=== PATIENT | female | born 1950 | race Caucasian/White ===

== ENCOUNTER 2022-05-25 08:47 | Day surgery (SDC) | payer MEDICARE, SELFPAY ==
--- NOTE | 2022-05-25 06:47 | HPE_ITS ---
Assessment and Plan Assessment and plan (1) Nuclear sclerotic cataract of right eye: Status: Acute Assessment and plan: Assessment: Visually significant cataract of the right eye. Plan: Cataract extraction with intraocular lens implantation of the right eye. (2) Cortical cataract of right eye: Status: Acute Assessment and plan: Assessment: Visually significant cataract of the right eye. Plan: Cataract extraction with intraocular lens implantation of the right eye (3) Posterior subcapsular age-related cataract, right eye: Status: Acute Assessment and plan: Assessment: Visually significant cataract of the right eye. Plan: Cataract extraction with intraocular lens implantation of the right eye History of Present Illness History of Present Illness Chief Complaint: Progressive decreased vision, right eye Narrative: Patient is a 71-year-old lady who presented with complaints of progressive dec reased vision in her right eye. She noted significant difficulty with glare and also has trouble with floaters. Past ocular history is significant for retinal laser in the left eye for a retinal tear, and pars plana vitrectomy and membrane peeling in the left eye at [facility]. She now notes significant decreased visual acuity in her right eye. Review of Systems All systems reviewed & are unremarkable except as noted in HPI and below PFSH All Active Problems (Updated 05/25/22 @ 09:23 by Indigo Fields) Nuclear sclerotic cataract of right eye (Acute) Cortical cataract of right eye (Acute) Posterior subcapsular age-related cataract, right eye (Acute) Medical History (Updated 05/25/22 @ 09:23 by Indigo Fields) A-fib Chronic back pain GERD (gastroesophageal reflux disease) History of uterine fibroid removal Hypertensive disorder Incontinence Joint pain Morbid obesity PND (post-nasal drip) Shortness of breath at rest pt. states its with exertion Surgical History History of colonoscopy Hx of cataract surgery Hx of eye surgery vitreal peel and retinal detachment Hx of tonsillectomy Social History Smoking/Tobacco Use Status: Never Smoking risk assessment performed?: Yes Alcohol Intake: current Alcohol Intake frequency: a few times a month Drug use: Never Substance use type: does not use Do you feel safe at home: Yes Do you feel safe in your relationship?: Yes Meds Allergies and Home Medications Allergies Allergy/AdvReac Type Severity Reaction Status Date / Time grass pollen Allergy Intermediate Other (See Unverified 05/25/22 09:23 Comment) house dust Allergy Intermediate Other (See Unverified 05/25/22 09:23 Comment) Sulfa (Sulfonamide Allergy Intermediate Other (See Unverified 05/25/22 09:23 Antibiotics) Comment) Home Medications Medication Instructions Recorded Confirmed Type acetaminophen 325 mg tablet 650 mg PO DAILY PRN 03/27/22 05/25/22 History apixaban 5 mg tablet (Eliquis) 5 mg PO BID 03/27/22 05/25/22 History diltiazem HCl 180 mg capsule,24 180 mg PO HS 03/27/22 05/25/22 History hr,extended release fluticasone propionate 50 1 spray intranasal QAM PRN 03/27/22 05/25/22 History mcg/actuation nasal spray,suspension hydrochlorothiazide 25 mg tablet 25 mg PO DAILY 03/27/22 05/25/22 History ketoconazole 2 % topical cream 1 applic topical BID PRN 03/27/22 05/25/22 History metoprolol succinate 100 mg 100 mg PO HS 03/27/22 05/25/22 History tablet,extended release 24 hr Exam Eyes Other: Corrected visual acuity measures 20/50 right eye, 20/30 left eye. Extraocular motility is exam is significant for a vertical misalignment. Slit-lamp examination is significant for mild cortical and posterior subcapsular cataract of the right eye, with moderate nuclear cataract. Pupils dilate to 7 mm. There is a well-positioned PCIOL OS in the left eye with open posterior capsule. Disc cupping is 0.3 OU. Resp Auscultation: clear to auscultation bilaterally Cardio Rate: regular rate Rhythm: regular rhythm
--- NOTE | 2022-05-25 09:26 | W.ANESPRE ---
General Info Date of Service Date Performed: 05/25/22 Height: 4 ft 10 in Weight: 91.5 kg Body Mass Index (BMI): 42.1 Surgical Procedure: Operation Date: 05/25/22 11:40 Proposed Procedure Side Surgeon p Cataract Extraction with IOL Implant Right Lewis Workman MD Meds Allergies and Home Medications Allergies Allergy/AdvReac Type Severity Reaction Status Date / Time grass pollen Allergy Intermediate Other (See Unverified 05/25/22 09:23 Comment) house dust Allergy Intermediate Other (See Unverified 05/25/22 09:23 Comment) Sulfa (Sulfonamide Allergy Intermediate Other (See Unverified 05/25/22 09:23 Antibiotics) Comment) Home Medication Medication Instructions Recorded acetaminophen 325 mg tablet 650 mg PO DAILY PRN 03/27/22 apixaban 5 mg tablet (Eliquis) 5 mg PO BID 03/27/22 diltiazem HCl 180 mg capsule,24 180 mg PO HS 03/27/22 hr,extended release fluticasone propionate 50 1 spray intranasal QAM PRN 03/27/22 mcg/actuation nasal spray,suspension hydrochlorothiazide 25 mg tablet 25 mg PO DAILY 03/27/22 ketoconazole 2 % topical cream 1 applic topical BID PRN 03/27/22 metoprolol succinate 100 mg 100 mg PO HS 03/27/22 tablet,extended release 24 hr Current Visit Medications: Current Medications Generic Name Dose Route Start Last Admin Trade Name Freq PRN Reason Stop Dose Admin Acetaminophen 1,000 mg 05/25/22 06:00 Acetaminophen 500 Mg Tab PO Q4H PRN PRN Miscellaneous Medication 0 ml 05/25/22 06:00 Prednisolone 1%, Moxifloxacin 0.5%, Nepafenac 0.1% 5ml Btl OD DIRECTED [facility] Miscellaneous Medication 0 ml 05/25/22 06:00 Tropicam./Phenyleph. (1/2.5%) 5 Ml Btl OD DIRECTED ALTHEA Tetracaine HCl 0 ml 05/25/22 06:00 Tetracaine 0.5% 4 Ml Btl OD DIRECTED [facility] PFSH Active Problems Active Problems: Problem Status Onset Code Nuclear sclerotic cataract of right eye H25.11 Cortical cataract of right eye H26.9 Posterior subcapsular age-related cataract, right eye H25.041 Medical History Medical History (Updated 05/25/22 @ 09:23 by Indigo Fields) A-fib Chronic back pain GERD (gastroesophageal reflux disease) History of uterine fibroid removal Hypertensive disorder Incontinence Joint pain Morbid obesity PND (post-nasal drip) Shortness of breath at rest pt. states its with exertion Medical History Comments:: Per pt. states she have chronic nasal drainage is her baseline Surgical History Surgical History History of colonoscopy Hx of cataract surgery Hx of eye surgery vitreal peel and retinal detachment Hx of tonsillectomy Tobacco Smoking/Tobacco Use Status: Never Alcohol Alcohol Intake: current Alcohol intake frequency: a few times a month Substance Use Substance use: Never Substance use type: does not use Vital Signs and Lab Results Lab Results Blood Type / Crossmatch: No Data to Display Complete Blood Count: No Data to Display Complete Metabolic Panel: No Data to Display Liver Function Panel: No Data to Display Coagulation Panel: No Data to Display Cardiac Panel: No Data to Display Arterial Blood Gas: No Data to Display Venous Blood Gas: No Data to Display Pancreas Panel: No Data to Display Thyroid Panel: No Data to Display Infectious Disease: No Data to Display Blood Cultures: No Data to Display Toxicology Panel: No Data to Display Anesthesia Assessment and Plan Anesthesia History Personal History: No History of Anesthesia Complications Family History: No Family History of Anesthesia Complications Exercise Tolerance Exercise Tolerance: Metabolic Equivalents>4 Pertinent Negatives Pertinent Negatives: No Symptoms of GERD, No Major Pulmonary Symptoms or Complaints and No History of CVA/TIA Cardiac & Pulmonary Exam Cardiac Exam: Normal S1/S2 Heart Sounds Pulmonary Exam: Clear Bilateral Breath Sounds Implantable Cardiac Device Does patient have a Pacemaker or an ICD?: No Airway Exam Known Difficult Airway: No Mallampati Class: 2 Mouth Opening: Normal (> 3cm) Thyromental Distance: Greater than 3 cm Neck Range of Motion: Full ROM Neck Circumference: Normal Teeth Condition: Normal Dentition ASA Classification ASA Score: ASA 3 Emergency Case?: No NPO Status NPO Status: NPO Clears >2 hours, Solids >8 hours Anesthesia Plan Resuscitation Status: Full Code Anesthesia Technique: MAC Anesthesia Airway Planned: Natural Airway Monitors Used: Standard Monitors
[2022-05-25 09:27] VITALS: BP 145/92; PULSE 63; RESP 16; TEMP 36.6; O2SAT 97
[2022-05-25] MEDS: Tropicam./Phenyleph. (1/2.5%) 5 ML BTL OD ×3 (09:32→09:44)
[2022-05-25 09:37] VITALS: BMI 42.1
[2022-05-25] MEDS: Duovisc Viscoelastic System EACH 1 EACH (10:17)
[2022-05-25] MEDS: Tetracaine 0.5% 4 ML BTL OD (10:17)
[2022-05-25] MEDS: Balanced Salt Soln.-PLUS 500 ML BAG (10:17)
[2022-05-25] MEDS: Lidocaine 2% Jelly 6 ML SYR (10:18)
[2022-05-25] MEDS: Lidocaine 1% Pres-Free 5 ML VIAL (10:19)
[2022-05-25] MEDS: Povidone-Iodine Ophth 30 ML BTL (10:19)
[2022-05-25 10:40] VITALS: BP 152/76; PULSE 73; RESP 16; TEMP 36; O2SAT 99
--- NOTE | 2022-05-25 10:43 | PDOC.DSDIS_ITS ---
Date of service: 05/25/22 Time of Service: 10:44 Discharge Plan Disposition Patient Disposition: HOME Condition: Good Discharge Details Attending Provider: Lewis Workman Primary Care Provider: Kamar Ochoa [place] Meds and New Rx's Prescriptions: No Action acetaminophen 325 mg Tablet 650 mg PO DAILY PRN diltiazem HCl 180 mg Capsule,Extended Release 24 Hr 180 mg PO HS hydrochlorothiazide 25 mg Tablet 25 mg PO DAILY ketoconazole 2 % Cream 1 applic TOPICAL BID PRN fluticasone propionate [Flonase] 50 mcg/actuation [place],Suspension 1 spray INTRANASAL QAM PRN Eliquis 5 mg Tablet 5 mg PO BID metoprolol succinate 100 mg Tablet Extended Release 24 Hr 100 mg PO HS Discharge Instructions Stand Alone Forms: Post-op Topical Cataract, Tete Rachel (DSU) Discharge Orders Discharge Orders: Discharge Order (Routine); Ordered 05/25/22 Ordered By: Lewis Workman DS: Diagnosis Discharge Diagnosis (1) Nuclear sclerotic cataract of right eye: Status: Resolved (2) Cortical cataract of right eye: Status: Resolved (3) Posterior subcapsular age-related cataract, right eye: Status: Resolved
--- NOTE | 2022-05-25 10:45 | W.PM.OP ---
Date of service: 05/25/22 Time of Service: 10:45 Operative Note Operative Note DATE OF PROCEDURE: 05/25/22 PRE-OP DIAGNOSIS: Nuclear/cortical/posterior subcapsular cataract, right eye POST-OP DIAGNOSIS: same PROCEDURE: Cataract extraction using phacoemulsification with intraocular lens implant, right eye SURGEON: Lewis Workman ANESTHESIA TYPE: Local By Surgeon and MAC Refer to Anesthesia Record ESTIMATED BLOOD LOSS: 0 PATHOLOGY: none sent COMPLICATIONS: None Patient was transported to: same day Patient's condition: stable Implants: Vitaliy & Vitaliy/LETITIA Tecnis [id number] Indications: Progressive visual loss due to cataract, right eye Procedure Description: CATARACT SURGERY OPERATIVE REPORT PREOPERATIVE DIAGNOSIS: 1. Nuclear/cortical/posterior subcapsular cataract, right eye POSTOPERATIVE DIAGNOSIS: Same OPERATION: 1. Cataract extraction using phacoemulsification with posterior chamber intraocular lens implant, right eye. IOL: IOL Battery Assembler/Model: Vitaliy & Vitaliy / LETITIA Tecnis [id number] IOL Power: + 19.5 diopters IOL Serial Number: [id number] Optic Diameter: 6.0mm Haptic/Overall Diameter: 13.0mm PHACO INFO: Afshin Julong Educational Technologyurion Vision System with OZil and Active Fluidics Cumulative Dispersed Energy (CDE): 7.66 seconds SURGEON: Lewis Workman MD, MARINA ANESTHESIA: Monitored Anesthesia Care (MAC), with local sub-tenon's anesthetic infiltration COMPLICATIONS: None SPECIMENS: None INDICATIONS FOR PROCEDURE: The patient is a 71-year-old lady with history of having undergone previous cataract surgery in the left eye, and plana vitrectomy and membrane peeling in the left eye as well. She has now developed asymptomatic nuclear/cortical/posterior subcapsular cataract in the right eye and desires cataract surgery there in order to improve and maximize her vision. PROCEDURE: The correct surgical eye was identified and marked as the right eye and the pupil was dilated in the preoperative area using mydriatics and cycloplegics. The dilated pupil size was 7.0 mm. The patient elected to proceed without oral sedation. The patient was brought to the operating room where cardiopulmonary monitoring was instituted and surgical time-out was performed, confirming the correct operative eye and IOL power. Topical anesthesia was administered and ophthalmic povidone-iodine 5% was instilled into the conjunctival fornices. Lidocaine gel was applied to the cornea and the flower-ocular area was prepped with Betadine 10% solution and draped in the usual sterile fashion for intraocular surgery, including an aperture drape. A Tegaderm transparent film dressing was cut in half and used to cover the lashes and lid margins. Care was taken to sequester the lashes and lid margins under the Tegaderm dressing. A lid speculum was placed between the lids of the operative eye and the Afshin LuxOR Revalia operating microscope was maneuvered into position. Nima scissors were then used to make a conjunctival buttonhole approximately 6mm posterior to the limbus in the inferonasal quadrant. Blunt dissection was carried out to expose bare sclera, and a blunt-tipped sub-tenon?s anesthesia cannula was introduced and passed posteriorly along the globe where non-preserved plain lidocaine was injected into posterior sub-Tenon?s space. A sideport knife was used to make a paracentesis port inferotemporally. The anterior chamber was filled with viscoelastic. A keratome knife was used to construct a 2-plane near-clear corneal tunnel extending 2.0mm into clear cornea superiortemporally. A flap was raised on the anterior capsule and capsulorhexis forceps were used to complete a continuous curvilinear capsulorhexis of 5.0 mm. The anterior capsule was noted to be quite thin. The anterior chamber was relatively shallow, considering the axial length of greater than 24 mm. Additional Viscoat had to be injected to decrease the convexity of the anterior lens capsule. Balanced salt solution was then used to perform cortical cleaving hydrodissection and nuclear hydrodelineation until the lens could be freely rotated within the capsular bag. The lens nucleus was then disassembled and removed within the capsular bag and iris plane using phacoemulsification. Residual cortical material was removed using the I/A handpiece. The posterior capsule was carefully polished to remove as much residual lens epithelial cells as safely possible. The capsular bag was then inflated and the anterior chamber deepened with viscoelastic. The lens implant described above was inserted into the capsular bag using the LETITIA Bushnell Injector. A Kuglen hook was used to dial the IOL into position. Residual viscoelastic was then removed first from posterior to the IOL, then from the anterior chamber using the I/A handpiece. The lens implant was noted to center nicely within the capsular bag. The incisions were stromally hydrated, and the anterior chamber was reformed using BSS. The iris was noted to be quite floppy, and tended to prolapse through the main sacral incision. Miostat was then injected into the anterior chamber and the pupil was noted to come down round, and relieved the floppy iris issue. Then 0.5cc of moxifloxacin 1.0mg/ml were injected into the capsular bag and anterior chamber. The incisions were checked with a Weck spear and found to be secure. Several drops of ophthalmic povidone-iodine 5% were then applied to the eye followed by two drops of Imprimis combination prednisolone/moxifloxacin/nepafenac solution. The drapes were removed and a clear plastic protective eye shield was placed over the eye. The patient was then returned to Same Day Surgery in stable condition.
--- NOTE | 2022-05-25 11:04 | W.ANESPOSTOP ---
Postoperative Evaluation Date, Time and Location Date Performed: 05/25/22 Time Performed: 11:04 Patient Location: Day Surgery Unit Vital Signs Most Recent Imported Vital Signs: Most Recent Vital Signs Temp Pulse Resp BP Pulse Ox 36 C L 73 16 152/76 H 99 05/25/22 10:40 05/25/22 10:40 05/25/22 10:40 05/25/22 10:40 05/25/22 10:40 Pain Score Most Recent Pain Score: Most Recent Pain Score Pain Level 0 05/25/22 10:40 Assessment Mental Status: Awake (Alert & Oriented to Patient Baseline) Airway and Respiratory Function: Patent airway with normal (patient baseline) respiratory exam Cardiovascular Function: Hemodynamically Stable Hydration Status: Adequately Hydrated Nausea & Vomiting: No Nausea or Vomiting Pain: Pt. Denies Any Pain Peripheral Nerve Block: Other (Local by Dr. Workman)
== END 2022-05-25 11:06 | disposition home or self-care (01) ==
LOC: SUR 08:47
PROVIDERS: PCP Neuromusculoskeletal Medicine & OMM; Visit Provider Ophthalmology
PROC: (CPT 66984; principal; 2022-05-25 11:30)
DX: H25.041 Posterior subcapsular polar age-related cataract, right eye (principal)
CPT/HCPCS: 66984; V2632

== ENCOUNTER 2022-12-18 08:37 | Outpatient (CLI) | payer MEDICARE, SELFPAY ==
--- NOTE | 2022-12-18 08:30 | RT.EKG_ITS ---
APPROVED REPORT Exam: Resting ECG Reason for Exam: afib Patient Location: O HR:65 bpm ECG Measurements Heart Rate 65 AXIS OR [id number] P [id number] QRSd 100 QRS 19 QT 421 T 32 QTc 438 Conclusion Atrial fibrillation...? atrial activity Low voltage, precordial leads...precordial leads <1.0mV
== END 2022-12-18 08:38 | disposition home or self-care (01) ==
LOC: DI.CARD 08:38
PROVIDERS: PCP Neuromusculoskeletal Medicine & OMM; Visit Provider Internal Medicine Cardiovascular Disease
DX: I48.91 Unspecified atrial fibrillation (principal)
CPT/HCPCS: 93010

== ENCOUNTER → 2022-12-18 10:58 | Outpatient (BNVA) | payer MEDICARE, SELFPAY | PROVIDERS: PCP Neuromusculoskeletal Medicine & OMM; Referring Provider Neuromusculoskeletal Medicine & OMM; Visit Provider Internal Medicine Cardiovascular Disease | DX: I48.21 Permanent atrial fibrillation (principal); Z79.01 Long term (current) use of anticoagulants | CPT/HCPCS: 93005; 99202; 99203 ==

== ENCOUNTER 2022-12-28 01:55 | Outpatient (CLI) | payer MEDICARE, SELFPAY ==
--- NOTE | 2022-12-28 07:15 | DI.NM_ITS ---
APPROVED REPORT Exam: Pharmacologic Patient Location: Out-Patient Room/Bed: Stress Nurse: Kate Pascal RN Ordering Provider:JESUS HEWITTD, Contact Number: BMI: 42.84 Baseline Rhythm: Atrial Fibrillation Indications: Exertional dyspnea, Afib Medical History Medical History: Afibm GERD, HTN, PND, SOB/SINGER, back pain, Obesity Cardiac Medications: Metoprolol succinate, HCTZ, Flonase, Diltiazem, Apixiban Allergies: Grass pollen, house dust, sulfa Cardiac Risk Factors: Family Hx, HTN, Obesity Previous Cardiac Procedures: None Pretest Chest Pain Characteristics: None Exercise History: Sedentary Physical Disabilities: None Lung Sounds: Clear to auscultation Heart Sounds: Irregular Stress Test Details Test: Exercise stress converted to pharmacologic stress due to failure to obtain a diagnostic stress test. Nuclear Acquisition: Stress Tc-99m/Stress Tc-99m 1 day Rest Isotope: Tc-99m Sestamibi. Dose: 10 Date: 12/28/2022 Injection Time: 0845 Stress Isotope: Tc-99m Sestamibi. Dose: 31 Date: 12/28/2022 Injection Time: 1014 HR Resting HR Supine: 60 bpm Max Heart Rate (APMHR): 148.130702 bpm Resting HR Standin bpm Target HR (85% APMHR): 125.317088 bpm Max HR Achieved: 111 bpm % of APMHR: 75.00 Recovery HR: 77 bpm HR response to stress: Normal HR response to stress BP Resting BP Supine: 142/82 mmHg Resting BP Standin/82 mmHg Max BP: 162/78 mmHg Recovery BP: 162/78 mmHg BP response to stress: Normal blood pressure response to stress. ECG Resting ECG: Atrial Fibrillation Ectopy: None Stress ECG: Atrial Fibrillation ST Change: No significant ST segment changes noted Arrhythmia: None Recovery ECG: Atrial Fibrillation Recovery ST Change: No significant ST segment changes noted Recovery Arrhythmia: None Clinical Rate Pressure Product: [id number] Stress ECG Conclusion 1. The resting electrocardiogram showed atrial fibrillation 2. Patient underwent testing using pharmacologic stress with regadenoson 3. Peak heart rate achieved was 75% of predicted for age 4. The electrocardiographic portion of the test was nondiagnostic 5. See MPI report Stress Test Summary STAGE Time (mins) Speed (mph) Grade (%) HR BP SpO2 SYMPTOMS METS Supine 60 142/82 Standing 65 128/82 98 1 min post Lexiscan injection 98 142/82 96 SOB 3 min post Lexiscan injection 97 152/88 96 SOB/SELBY 6 min post Lexiscan injection 77 162/78 98 SOB resolved, lingering SELBY Patient able to tolerate about 1 minute of exercise before transition to walking kiki from fatigue an d inability to reach THR. Pharmacologic testing performed with low level exercise of treadmill at 0.7 MPH and 0% grade. Patient did take metoprolol succinate last night. MPI Conclusion Myocardial perfusion is normal. There is no ischemia or evidence of prior infarction EF 77%, wall motion is normal Radiologist Interpretation Radiologist agrees with Information Engineer's Interpretation. Radiologist Interpretation by: Gume Menjivar MD Interpretation Date/Time: 12/29/2022 15:35:12
[2022-12-28] MEDS: Regadenoson 0.4 MG/5 ML SYR IVP (10:22)
== END 2022-12-28 02:15 ==
LOC: DI 01:55
PROVIDERS: PCP Neuromusculoskeletal Medicine & OMM; Visit Provider Internal Medicine Cardiovascular Disease
DX: I48.91 Unspecified atrial fibrillation (principal)
CPT/HCPCS: 78452; 93016; 93018; 93017; J2785

== ENCOUNTER → 2023-05-11 02:31 | Outpatient (CLI) | payer MEDICARE, SELFPAY ==
--- NOTE | 2023-05-11 07:30 | DI.US_ITS ---
APPROVED REPORT EXAM: Comprehensive 2D, Doppler, and color-flow Echocardiogram Patient Location: Out-Patient Supervisor Accounting Clerks: Mike Rodriguez RDCS (AE) Indications: atrial fibrillation and dyspnea Other Information Study Quality: Adequate. Technically limited study due to body habitus. Conclusion Normal left ventricular wall thickness and chamber size. Ejection fraction is 60 to 65%. Wall motio n is normal Normal right ventricular size and systolic function Both atria are moderately enlarged Aortic valve is trileaflet without stenosis or regurgitation Normal mitral valve with mild regurgitation Normal tricuspid valve with mild to moderate regurgitation. Estimated right ventricular systolic pre ssure is 27 mmHg Wall motion Left Ventricle The left ventricle is normal size. The left ventricular systolic function is normal. The left ventric ular ejection fraction is within the normal range. There is normal left ventricular wall thickness. T here is normal LV segmental wall motion. There is no ventricular septal defect visualized. LVEF is 60 -65%. Right Ventricle The right ventricle is normal size. The right ventricular systolic function is normal. The RVSP is 27 .1 mmHg. Atria Left atrium is moderately dilated. Right atrium is moderately dilated. The interatrial septum is inta ct with no evidence for an atrial septal defect. Aortic Valve The aortic valve is normal in structure. Aortic valve is trileaflet. There is no aortic valvular sten osis. Mitral Valve The mitral valve is normal in structure. No evidence of mitral valve stenosis. Mild mitral regurgitat ion. Tricuspid Valve The tricuspid valve is normal in structure. There is no tricuspid valve stenosis. Mild to moderate tr icuspid regurgitation. Pulmonic Valve The pulmonary valve is normal in structure. There is no pulmonic valvular stenosis. There is no pulmo dennys valvular regurgitation. Great Vessels The aortic root is normal in size. The ascending aorta is mildly dilated. Aortic arch is normal in ca liber. IVC is normal in size and collapses >50% with inspiration. Pericardium There is no pericardial effusion. 2D Dimensions IVSD d PLAX 1.04 cm F: 0.6-1.0 Ao Root d 1.99 cm F: 2.7 - 3.3 LVPW d PLAX 0.99 cm F: 0.6 - 1.0 Ao Asc Diam d 3.34 cm F: 2.3 - 3.1 LVID d PLAX 4.03 cm F: 3.8 - 5.2 LVDs 2.63 cm F: 2.2 - 3.5 LV EF Teichholz 64.4 % FS 34.65 % LV EDV (Teich) 71.1 mL LV ESV (Teich) 25.4 mL Stroke Vol Index (Teich) 24.88 M-Mode TAPSE 2.31 cm (M/F) >1.7 Auto EF LV EDV A4C 57.6 mL LV EDV A2C 73.4 mL LV EDV BP 64.7 mL LV ESV A4C 22.5 mL LV ESV A2C 29.6 mL LV ESV BP 25.2 mL LVEF(%) A4C 60.9 % LVEF(%) A2C 59.7 % LVEF(%) BP 61.0 % LV SV A4C 35.1 ml LV SV A2C 43.8 ml LV SV BP 39.4 ml LV CO A4C 1.8 L/min LV CO A2C 2.7 L/min LV CO BP 2.3 L/min HR A4C 51.65 BPM HR A2C 62.72 BPM LV EDV Index (BP) LA Volume LA Length A4C 6.3 cm LA Length A2C LA Area A4C s 21.31 cm2 LA Area A2C s LA Vol A4C A-L 61.13 mL LA Vol A2C A-L LA Vol Biplane A-L LA Vol A4C MOD 59.0 mL LA Vol A2C MOD LA Vol BP MOD RA Volume RA Area A4C 21.1 cm2 RA ESV A4C (A-L) 61.9mL RA Vol/BSA A4C A-L RA Length A4C 6.1 cm RA ESV A4C (MOD) 59.7mL LV Diastology MV E' medial 0.132 (>0.07 m/s) MV E Vmax 1.35 (0.4-1.3 m/s) MV E' lateral 0.089 (>0.1 m/s) Aortic Valve AoV Vmax 1.15 m/s LVOT Vmax 0.63 m/s AoV Peak Grad 5.3 mmHg LVOT Peak Grad 1.6 mmHg AoV Area (Vmax) 0.88 cm2 LVOT VTI 0.179 m AoV VTI 0.302 m LVOT Mean Grad 0.8 mmHg AoV Mean Eduardo. 0.78 m/s LVOT SV 28.50 mL AoV Mean Grad 2.9 mmHg LVOT Diam s 1.40 cm AoV Area (VTI) 0.94 cm2 Velocity Ratio 0.55 Pulmonary Valve RVOT Vmax 0.51 m/s RVOT Peak Gr. 1.0 mmHg RVOT VTI 0.128 m RVOT Mean Gr. 0.5 mmHg Tricuspid Valve RA Pressure 3.00 mmHg TR Vmax 2.46 m/s TR Peak Grad 24.1 mmHg RVSP (TR) 27.1 mmHg
== END ==
PROVIDERS: PCP Neuromusculoskeletal Medicine & OMM; Visit Provider Internal Medicine Cardiovascular Disease
DX: I48.91 Unspecified atrial fibrillation (principal)
CPT/HCPCS: 93306

== ENCOUNTER → 2023-05-20 09:40 | Outpatient (BNVA) | payer MEDICARE, SELFPAY | PROVIDERS: PCP Neuromusculoskeletal Medicine & OMM; Referring Provider Neuromusculoskeletal Medicine & OMM; Visit Provider Internal Medicine Cardiovascular Disease | DX: I48.21 Permanent atrial fibrillation (principal); Z79.01 Long term (current) use of anticoagulants | CPT/HCPCS: 99213 ==

== ENCOUNTER → 2023-06-14 13:23 | Outpatient (BNVA) | payer MEDICARE, SELFPAY | PROVIDERS: PCP Neuromusculoskeletal Medicine & OMM; Referring Provider Neuromusculoskeletal Medicine & OMM; Visit Provider Podiatrist | CPT/HCPCS: 99214 ==

== ENCOUNTER → 2023-08-18 13:43 | Outpatient (BNVA) | payer MEDICARE, SELFPAY | PROVIDERS: PCP Neuromusculoskeletal Medicine & OMM; Referring Provider Neuromusculoskeletal Medicine & OMM; Visit Provider Podiatrist | DX: E66.01 Morbid (severe) obesity due to excess calories; L60.3 Nail dystrophy; L84 Corns and callosities; Q82.8 Other specified congenital malformations of skin; B07.0 Plantar wart; M76.822 Posterior tibial tendinitis, left leg; M21.42 Flat foot [pes planus] (acquired), left foot; M79.675 Pain in left toe(s) | CPT/HCPCS: 17110 ==

== ENCOUNTER → 2023-09-02 10:58 | Outpatient (BNVA) | payer MEDICARE, SELFPAY | PROVIDERS: PCP Neuromusculoskeletal Medicine & OMM; Referring Provider Neuromusculoskeletal Medicine & OMM; Visit Provider Nurse Practitioner Gerontology | DX: R32 Unspecified urinary incontinence (principal); R39.9 Unspecified symptoms and signs involving the genitourinary system; R31.9 Hematuria, unspecified; N89.8 Other specified noninflammatory disorders of vagina | CPT/HCPCS: 51798; 81003; 99215 ==

== ENCOUNTER 2023-09-02 12:19 | Outpatient (REF) | payer MEDICARE, SELFPAY ==
[2023-09-02 14:30] LABS: Bilirubin Negative (Negative); Blood Moderate (Negative); Clarity Sl Cloudy (Clear); Glucose Negative (Negative); Ketones Negative (Negative); Leukocyte Esterase Small (Negative); Nitrite Negative (Negative); Specific Gravity 1.015 (1.005-1.025)
[2023-09-02 14:38] LABS: Bacteria Rare HPF (Negative); C & S Indicated? C&S Done As Ordered; Casts Negative LPF (Negative); Crystals Negative HPF (Negative); Epithelial Cells Many HPF (Negative); Mucus Negative (Negative)
== END 2023-09-02 12:20 | disposition home or self-care (01) ==
LOC: LBN 12:19
PROVIDERS: PCP Neuromusculoskeletal Medicine & OMM; Visit Provider Nurse Practitioner Gerontology
DX: R32 Unspecified urinary incontinence (principal); R82.998 Other abnormal findings in urine
CPT/HCPCS: 81003; 81015; 87086

== ENCOUNTER → 2023-11-25 13:42 | Outpatient (BNVA) | payer MEDICARE, SELFPAY | PROVIDERS: PCP Neuromusculoskeletal Medicine & OMM; Referring Provider Neuromusculoskeletal Medicine & OMM; Visit Provider Nurse Practitioner Gerontology | DX: R31.9 Hematuria, unspecified (principal); N89.8 Other specified noninflammatory disorders of vagina | CPT/HCPCS: 81003; 99213 ==

== ENCOUNTER → 2024-05-25 09:55 | Outpatient (BNVA) | payer MEDICARE, SELFPAY | PROVIDERS: PCP Neuromusculoskeletal Medicine & OMM; Referring Provider Neuromusculoskeletal Medicine & OMM; Visit Provider Internal Medicine Cardiovascular Disease | DX: I48.21 Permanent atrial fibrillation (principal) | CPT/HCPCS: 99213 ==

== ENCOUNTER → 2024-05-31 14:10 | Outpatient (BNVA) | payer MEDICARE, SELFPAY | PROVIDERS: PCP Neuromusculoskeletal Medicine & OMM; Referring Provider Neuromusculoskeletal Medicine & OMM; Visit Provider Nurse Practitioner Gerontology | DX: R31.9 Hematuria, unspecified (principal); N89.8 Other specified noninflammatory disorders of vagina | CPT/HCPCS: 81003; 99213 ==

== ENCOUNTER → 2024-09-13 09:26 | Outpatient (BNVA) | payer MEDICARE, SELFPAY | PROVIDERS: PCP Nurse Practitioner Family; Referring Provider Nurse Practitioner Family; Visit Provider Podiatrist | DX: B07.0 Plantar wart (principal); M79.672 Pain in left foot | CPT/HCPCS: 17110 ==

== ENCOUNTER → 2024-10-25 09:34 | Outpatient (BNVA) | payer MEDICARE, SELFPAY | PROVIDERS: PCP Nurse Practitioner Family; Referring Provider Nurse Practitioner Family; Visit Provider Podiatrist | DX: B07.0 Plantar wart (principal); M79.672 Pain in left foot; M76.822 Posterior tibial tendinitis, left leg | CPT/HCPCS: 17110 ==

== ENCOUNTER → 2024-12-06 08:37 | Outpatient (BNVA) | payer MEDICARE, SELFPAY | PROVIDERS: PCP Nurse Practitioner Family; Referring Provider Nurse Practitioner Family; Visit Provider Podiatrist | DX: B07.0 Plantar wart; M79.672 Pain in left foot; M76.822 Posterior tibial tendinitis, left leg | CPT/HCPCS: 17110 ==

== ENCOUNTER → 2025-05-25 09:16 | Outpatient (BNVA) | payer MEDICARE, SELFPAY | PROVIDERS: PCP Nurse Practitioner Family; Visit Provider Internal Medicine Cardiovascular Disease | DX: I48.21 Permanent atrial fibrillation (principal); Z79.01 Long term (current) use of anticoagulants | CPT/HCPCS: 99213 ==

== ENCOUNTER → 2025-05-25 10:30 | Outpatient (BNVA) | payer MEDICARE, SELFPAY | PROVIDERS: PCP Nurse Practitioner Family; Referring Provider Neuromusculoskeletal Medicine & OMM; Visit Provider Urology | DX: R31.9 Hematuria, unspecified (principal); N39.3 Stress incontinence (female) (male) | CPT/HCPCS: 99214; 81002 ==